=== PATIENT | male | born 1960 | race Caucasian/White ===

== ENCOUNTER → 2020-03-15 | Outpatient (REF) | payer OTHER ==
[2020-03-15 12:39] LABS: BASO # 0.1 10^3/uL (0.0-0.2); BASO % 0.7 % (0.0-1.0); EOS # 0.3 10^3/uL (0.0-0.5); EOS % 4.1 % (0.0-3.0); HEMATOCRIT 48.4 % (42.0-52.0); HEMOGLOBIN 15.5 g/dl (13.5-17.5); LYMPH # 2.3 10^3/uL (1.5-5.0); LYMPH % 31.1 % (24.0-44.0); MEAN CORPUSCULAR HEMOGLOBIN 29.9 pg (27.0-33.0); MEAN CORPUSCULAR VOLUME 93.4 fl (80.0-96.0); MONO # 0.8 10^3/uL (0.0-0.8); MONO % 10.6 % (0.0-5.0); NEUTROPHILS # 3.9 10^3/uL (1.5-8.5); NEUTROPHILS % 53.1 % (36.0-66.0); PLATELET COUNT, AUTOMATED 195 10^3/uL (150-450); RED BLOOD COUNT 5.18 10^6/uL (4.30-6.10); WHITE BLOOD COUNT 7.3 10^3/uL (4.0-10.0)
[2020-03-15 13:09] LABS: ALBUMIN 4.2 GM/DL (3.2-5.2); BILIRUBIN,TOTAL 1.4 MG/DL (0.2-1.0); CALCIUM LEVEL 9.8 MG/DL (8.5-10.1); CHOLESTEROL RISK RATIO 3.411 (<5); CREATININE FOR GFR 1.34 MG/DL (0.70-1.30); GLOMERULAR FILTRATION RATE 58.5 (>56); MAGNESIUM LEVEL 1.9 MG/DL (1.8-2.4); POTASSIUM SERUM 4.9 MEQ/L (3.5-5.1); TOTAL PROTEIN 7.5 GM/DL (6.4-8.2)
== END ==
LOC: M SFHCPLAZ 10:17
PROVIDERS: ATTEND Internal Medicine
DX: Z00.00 Encounter for general adult medical examination without abnormal findings (principal); I10 Essential (primary) hypertension; E78.00 Pure hypercholesterolemia, unspecified; Z86.19 Personal history of other infectious and parasitic diseases; Z12.5 Encounter for screening for malignant neoplasm of prostate
CPT/HCPCS: 36415; 80053; 80061; 83735; 85025; G0103

== ENCOUNTER → 2020-05-04 | Outpatient (CLI) | payer OTHER | LOC: M LABSMTC 13:00 | PROVIDERS: ATTEND Family Medicine | DX: Z20.822 Contact with and (suspected) exposure to COVID-19 (principal) ==

== ENCOUNTER → 2021-07-04 | Outpatient (CLI) | payer OTHER ==
[2021-07-04 17:24] LABS: BASO # 0.1 10^3/uL (0.0-0.2); BASO % 0.7 % (0.0-1.0); EOS # 0.3 10^3/uL (0.0-0.5); EOS % 3.2 % (0.0-3.0); HEMATOCRIT 49.5 % (42.0-52.0); HEMOGLOBIN 16.3 g/dl (13.5-17.5); LYMPH # 2.7 10^3/uL (1.5-5.0); LYMPH % 30.9 % (24.0-44.0); MEAN CORPUSCULAR HEMOGLOBIN 30.6 pg (27.0-33.0); MEAN CORPUSCULAR HGB CONC 32.9 g/dl (32.0-36.5); MEAN CORPUSCULAR VOLUME 92.9 fl (80.0-96.0); MONO # 0.9 10^3/uL (0.0-0.8); MONO % 10.1 % (2.0-8.0); NEUTROPHILS # 4.8 10^3/uL (1.5-8.5); NEUTROPHILS % 54.5 % (36.0-66.0); PLATELET COUNT, AUTOMATED 190 10^3/uL (150-450); RED BLOOD COUNT 5.33 10^6/uL (4.30-6.10); WHITE BLOOD COUNT 8.8 10^3/uL (4.0-10.0)
[2021-07-04 17:48] LABS: ALBUMIN 4.5 GM/DL (3.2-5.2); CALCIUM LEVEL 10.4 MG/DL (8.5-10.1); CHOLESTEROL RISK RATIO 3.612 (<5); CREATININE FOR GFR 1.32 MG/DL (0.70-1.30); GLOMERULAR FILTRATION RATE 59.3 (>56); POTASSIUM SERUM 4.5 MEQ/L (3.5-5.1)
== END ==
LOC: M PLALAB 15:32
PROVIDERS: ATTEND Internal Medicine
DX: Z00.00 Encounter for general adult medical examination without abnormal findings (principal); Z12.5 Encounter for screening for malignant neoplasm of prostate; E78.00 Pure hypercholesterolemia, unspecified; I10 Essential (primary) hypertension; R74.8 Abnormal levels of other serum enzymes
CPT/HCPCS: 36415; 80053; 80061; 83735; 85025; G0103

== ENCOUNTER → 2021-09-08 | Outpatient (CLI) | payer OTHER ==
[2021-09-08 13:26] LABS: BASO % 0.4 % (0.0-1.0); EOS # 0.1 10^3/uL (0.0-0.5); EOS % 1.2 % (0.0-3.0); HEMATOCRIT 46.8 % (42.0-52.0); HEMOGLOBIN 15.9 g/dl (13.5-17.5); LYMPH # 2.1 10^3/uL (1.5-5.0); LYMPH % 22.7 % (24.0-44.0); MEAN CORPUSCULAR HEMOGLOBIN 31.7 pg (27.0-33.0); MEAN CORPUSCULAR VOLUME 93.4 fl (80.0-96.0); MONO % 10.5 % (2.0-8.0); NEUTROPHILS # 5.9 10^3/uL (1.5-8.5); NEUTROPHILS % 64.6 % (36.0-66.0); PLATELET COUNT, AUTOMATED 179 10^3/uL (150-450); RED BLOOD COUNT 5.01 10^6/uL (4.30-6.10); WHITE BLOOD COUNT 9.1 10^3/uL (4.0-10.0)
[2021-09-08 13:42] LABS: ALT/SGPT 53 U/L (12-78); AMYLASE 81 U/L (25-115); BILIRUBIN,TOTAL 1.8 MG/DL (0.2-1.0); BLOOD UREA NITROGEN 21 MG/DL (7-18); CALCIUM LEVEL 9.9 MG/DL (8.5-10.1); CARBON DIOXIDE LEVEL 26 MEQ/L (21-32); CHLORIDE LEVEL 103 MEQ/L (98-107); GLOMERULAR FILTRATION RATE > 60.0 (>56); GLUCOSE, FASTING 93 MG/DL (70-100); LIPASE 237 U/L (73-393); POTASSIUM SERUM 4.8 MEQ/L (3.5-5.1); SODIUM LEVEL 136 MEQ/L (136-145); TOTAL PROTEIN 7.6 GM/DL (6.4-8.2)
== END ==
LOC: M PLALAB 11:21
PROVIDERS: ATTEND Physician Assistant
DX: R10.9 Unspecified abdominal pain (principal)

== ENCOUNTER → 2021-09-11 | Outpatient (CLI) | payer OTHER | LOC: M WHC 08:11 | PROVIDERS: ATTEND Physician Assistant | DX: R10.9 Unspecified abdominal pain (principal); N28.1 Cyst of kidney, acquired ==

== ENCOUNTER → 2022-07-10 | Outpatient (CLI) | payer OTHER ==
[2022-07-10 10:56] LABS: HEMATOCRIT 49.6 % (42.0-52.0); HEMOGLOBIN 16.1 g/dl (13.5-17.5); MEAN CORPUSCULAR HEMOGLOBIN 30.8 pg (27.0-33.0); MEAN CORPUSCULAR HGB CONC 32.5 g/dl (32.0-36.5); PLATELET COUNT, AUTOMATED 181 10^3/uL (150-450); RED BLOOD COUNT 5.22 10^6/uL (4.30-6.10)
[2022-07-10 11:22] LABS: HEMOGLOBIN A1c 5.3 % (4.0-6.0)
[2022-07-10 11:28] LABS: FREE T4 1.13 NG/DL (0.89-1.76); THYROID STIMULATING HORMONE 2.112 uIU/ML (0.55-4.78)
[2022-07-10 11:30] LABS: C REACTIVE PROTEIN QUANTITATIV < 0.40 MG/DL (<1.0); VITAMIN B12 LEVEL 436 PG/ML (211-911)
[2022-07-10 11:32] LABS: ALBUMIN 4.2 G/DL (3.2-5.2); ALKALINE PHOSPHATASE 89 U/L (46-116); ALT/SGPT 34 U/L (7.0-40); AST/SGOT 21 U/L (<34); BILIRUBIN,TOTAL 0.9 MG/DL (0.3-1.2); BLOOD UREA NITROGEN 17 MG/DL (9-23); CALCIUM LEVEL 9.8 MG/DL (8.5-10.1); CARBON DIOXIDE LEVEL 28 MMOL/L (20-31); CHLORIDE LEVEL 103 MMOL/L (98-107); CHOLESTEROL LEVEL 234 MG/DL (<200); CHOLESTEROL RISK RATIO 3.38 (<5); CREATININE FOR GFR 1.24 MG/DL (0.70-1.30); GLOMERULAR FILTRATION RATE > 60.0 (>56); GLUCOSE, FASTING 92 MG/DL (60-100); HDL CHOLESTEROL 69.1 MG/DL (>40); LDL CHOLESTEROL 144.9 MG/DL (<100); NON-HDL-C 164.9 MG/DL; POTASSIUM SERUM 5.5 MMOL/L (3.5-5.1); SODIUM LEVEL 137 MMOL/L (136-145); TOTAL PROTEIN 7.4 G/DL (5.7-8.2); TRIGLYCERIDES LEVEL 100 MG/DL (<150)
[2022-07-11 17:07] LABS: APOLIPOPROTEIN B/A-1 RATIO 0.7 ratio (0.0-0.7); INSULIN LEVEL 12.7 uIU/mL (2.6-24.9)
== END ==
LOC: M PLALAB 07:24
PROVIDERS: ATTEND Internal Medicine Hematology
DX: I10 Essential (primary) hypertension (principal); N40.0 Benign prostatic hyperplasia without lower urinary tract symptoms; E78.00 Pure hypercholesterolemia, unspecified
CPT/HCPCS: 36415; 80053; 80061; 82172; 82306; 82607; 83036; 83525; 84439; 84443; 85027; 86140; G0103

== ENCOUNTER → 2022-07-13 | Outpatient (CLI) | payer OTHER ==
[2022-07-13 11:07] LABS: CALCIUM LEVEL 9.5 MG/DL (8.5-10.1); CREATININE FOR GFR 1.33 MG/DL (0.70-1.30); GLOMERULAR FILTRATION RATE 58.6 (>56); POTASSIUM SERUM 4.3 MMOL/L (3.5-5.1)
== END ==
LOC: M PLALAB 07:01
PROVIDERS: ATTEND Internal Medicine Hematology
DX: E87.5 Hyperkalemia (principal)

== ENCOUNTER → 2023-07-11 | Outpatient (CLI) | payer OTHER ==
[2023-07-11 11:21] LABS: BASO % 0.8 % (0.0-1.0); EOS # 0.2 10^3/uL (0.0-0.5); EOS % 4.6 % (0.0-3.0); HEMATOCRIT 48.9 % (42.0-52.0); HEMOGLOBIN 16.5 g/dl (13.5-17.5); LYMPH # 1.6 10^3/uL (1.5-5.0); LYMPH % 29.8 % (24.0-44.0); MEAN CORPUSCULAR HEMOGLOBIN 30.7 pg (27.0-33.0); MEAN CORPUSCULAR HGB CONC 33.7 g/dl (32.0-36.5); MEAN CORPUSCULAR VOLUME 91.1 fl (80.0-96.0); MONO # 0.7 10^3/uL (0.0-0.8); MONO % 13.9 % (2.0-8.0); NEUTROPHILS # 2.7 10^3/uL (1.5-8.5); NEUTROPHILS % 50.7 % (36.0-66.0); PLATELET COUNT, AUTOMATED 196 10^3/uL (150-450); RED BLOOD COUNT 5.37 10^6/uL (4.30-6.10); WHITE BLOOD COUNT 5.2 10^3/uL (4.0-10.0)
[2023-07-11 11:38] LABS: HEMOGLOBIN A1c 5.3 % (4.0-6.0)
[2023-07-11 11:49] LABS: PSA SCREENING 1.12 NG/ML (< 4.00)
[2023-07-11 11:51] LABS: C REACTIVE PROTEIN QUANTITATIV < 0.40 MG/DL (<1.0)
[2023-07-11 11:53] LABS: ALBUMIN 4.4 G/DL (3.2-5.2); ALKALINE PHOSPHATASE 85 U/L (46-116); ALT/SGPT 24 U/L (7.0-40); AST/SGOT 22 U/L (<34); BILIRUBIN,TOTAL 1.5 MG/DL (0.3-1.2); BLOOD UREA NITROGEN 18 MG/DL (9-23); CALCIUM LEVEL 9.5 MG/DL (8.3-10.6); CARBON DIOXIDE LEVEL 30 MMOL/L (20-31); CHLORIDE LEVEL 102 MMOL/L (98-107); CHOLESTEROL LEVEL 206 MG/DL (<200); CHOLESTEROL RISK RATIO 3.23 (<5); CREATININE FOR GFR 1.26 MG/DL (0.70-1.30); GLOMERULAR FILTRATION RATE > 60.0 (>49); GLUCOSE, FASTING 92 MG/DL (74-106); HDL CHOLESTEROL 63.6 MG/DL (>40); LDL CHOLESTEROL 127.6 MG/DL (<100); NON-HDL-C 142.4 MG/DL; POTASSIUM SERUM 4.1 MMOL/L (3.5-5.1); SODIUM LEVEL 138 MMOL/L (136-145); THYROID STIMULATING HORMONE 1.787 uIU/ML (0.55-4.78); TOTAL 25(OH) VITAMIN D 25.8 NG/ML (20.0-100.0); TOTAL PROTEIN 7.5 G/DL (5.7-8.2); TRIGLYCERIDES LEVEL 74 MG/DL (<150); VITAMIN B12 LEVEL 493 PG/ML (211-911)
[2023-07-11 12:14] LABS: CREATININE, URINE 331.8 MG/DL; MAU/CREAT RATIO 2.7 MCG/MG (0.0-30.0)
== END ==
LOC: M PLALAB 07:10
PROVIDERS: ATTEND Internal Medicine Hematology
DX: E78.00 Pure hypercholesterolemia, unspecified (principal); Z12.5 Encounter for screening for malignant neoplasm of prostate
CPT/HCPCS: 36415; 80053; 80061; 82043; 82306; 82607; 83036; 83525; 84439; 84443; 85025; 86140; G0103

== ENCOUNTER → 2023-10-10 | Outpatient (CLI) | payer OTHER ==
[2023-10-10 12:23] LABS: HEMOGLOBIN A1c 5.3 % (4.0-6.0)
[2023-10-10 12:40] LABS: ALBUMIN 4.1 G/DL (3.2-5.2); ALKALINE PHOSPHATASE 108 U/L (46-116); ALT/SGPT 34 U/L (7.0-40); AST/SGOT 23 U/L (<34); BILIRUBIN,TOTAL 1.8 MG/DL (0.3-1.2); BLOOD UREA NITROGEN 17 MG/DL (9-23); CALCIUM LEVEL 9.7 MG/DL (8.3-10.6); CARBON DIOXIDE LEVEL 28 MMOL/L (20-31); CHLORIDE LEVEL 104 MMOL/L (98-107); CHOLESTEROL LEVEL 147 MG/DL (<200); CREATININE FOR GFR 1.18 MG/DL (0.70-1.30); GLOMERULAR FILTRATION RATE > 60.0 (>49); GLUCOSE, FASTING 100 MG/DL (74-106); HDL CHOLESTEROL 69.7 MG/DL (>40); LDL CHOLESTEROL 64.7 MG/DL (<100); NON-HDL-C 77.3 MG/DL; POTASSIUM SERUM 4.6 MMOL/L (3.5-5.1); SODIUM LEVEL 139 MMOL/L (136-145); TOTAL PROTEIN 7.2 G/DL (5.7-8.2); TRIGLYCERIDES LEVEL 63 MG/DL (<150)
[2023-10-10 12:42] LABS: THYROID STIMULATING HORMONE 1.886 uIU/ML (0.55-4.78)
== END ==
LOC: M PLALAB 07:06
PROVIDERS: ATTEND Internal Medicine Cardiovascular Disease
DX: E78.2 Mixed hyperlipidemia (principal); R06.02 Shortness of breath; Z13.29 Encounter for screening for other suspected endocrine disorder; Z13.1 Encounter for screening for diabetes mellitus; I50.9 Heart failure, unspecified; I48.91 Unspecified atrial fibrillation

== ENCOUNTER → 2024-12-15 | Outpatient (REF) | payer OTHER ==
[2024-12-15 18:42] LABS: PLATELET COUNT, AUTOMATED 159 10^3/uL (150-450)
[2024-12-15 18:47] LABS: CREATININE, URINE 133.3 MG/DL; MALB URINE SIEMENS < 3.0 MG/L
[2024-12-15 18:48] LABS: ALT/SGPT 32.0 U/L (7.0-40); AST/SGOT 35.0 U/L (<34); CALCIUM LEVEL 8.9 MG/DL (8.3-10.6); CARBON DIOXIDE LEVEL 28.0 MMOL/L (20-31); CHLORIDE LEVEL 98.0 MMOL/L (98-107); CHOLESTEROL LEVEL 137.0 MG/DL (<200); CHOLESTEROL RISK RATIO 2.01 (<5); CREATININE FOR GFR 1.2 MG/DL (0.70-1.30); GLOMERULAR FILTRATION RATE 68.4 (>49); LDL CHOLESTEROL 53.7 MG/DL (<100); NON-HDL-C 69.1 MG/DL; POTASSIUM SERUM 3.6 MMOL/L (3.5-5.1); SODIUM LEVEL 139.0 MMOL/L (136-145); TRIGLYCERIDES LEVEL 77.0 MG/DL (<150)
[2024-12-15 19:13] LABS: ESTIMATED AVERAGE GLUCOSE 108.0 MG/DL (60-110)
== END ==
LOC: M SFHCPLAZ 15:28
PROVIDERS: ATTEND Family Medicine
DX: I10 Essential (primary) hypertension (principal); E78.00 Pure hypercholesterolemia, unspecified; R74.8 Abnormal levels of other serum enzymes; E66.811 Obesity, class 1

== ENCOUNTER → 2024-12-29 | Outpatient (CLI) | payer OTHER | LOC: M RAD 09:10 | PROVIDERS: ATTEND Family Medicine | DX: R74.8 Abnormal levels of other serum enzymes (principal); N28.1 Cyst of kidney, acquired; R93.2 Abnormal findings on diagnostic imaging of liver and biliary tract ==